=== PATIENT | female | born 1955 ===

== ENCOUNTER 2021-04-13 09:03 | Day surgery (SDC) | payer OTHER ==
[~2021-04-13 09:03] MED LIST: PRILOSEC PO
[2021-04-13] MEDS ORDERED: DICY20TA PO (14:13)
[2021-04-13] MEDS ORDERED: PERCOCET 5-3251 EACH PO (14:13)
[2021-04-13] MEDS ORDERED: PROTONIX40 MG PO (14:13)
[2021-04-13] MEDS ORDERED: DICLOFENAC SODI75 MG PO (14:14)
== END 2021-04-13 17:30 | disposition home or self-care (01) ==
LOC: CIR.AMB 09:03
PROVIDERS: ATTEND Surgery
DX: K80.10 Calculus of gallbladder with chronic cholecystitis without obstruction (principal); Z20.822 Contact with and (suspected) exposure to COVID-19